=== PATIENT | female | born 1980 | race Caucasian/White ===

== ENCOUNTER 2020-03-13 15:39 | Inpatient (IN) | payer OTHER ==
[2020-03-13] VITALS (15 sets, daily range): BP systolic 109–134; BP diastolic 61–82
[~2020-03-13] VITALS: Ht 154.9 cm; Wt 76.4 kg
[2020-03-13] MEDS ORDERED: INDOCYANINE GREEN 25 MG/10 ML VIAL IV STA (15:55)
--- NOTE | 2020-03-13 16:00 | NUR ---
Received patient to room 344B. Patient is alert and oriented x4 with c/o 8/10 abdominal pain. Denies n/v at this time. Oriented patient to room and call light. Call light placed within reach. Bed is low and locked.
[2020-03-13] MEDS ORDERED: INDOCYANINE GREEN 25 MG/10 ML VIAL IV ONE (16:07)
[2020-03-13] MEDS ORDERED: ceFAZolin 2gm in dextrose, iso 50 ML IV ONE (16:07)
[2020-03-13] MEDS ORDERED: ringers solution, lacted 1,000 ML IV SCH (16:10)
[2020-03-13] MEDS ORDERED: labetalol 20mg/4ml (5mg/ml) syringe IV PRN (16:10)
[2020-03-13] MEDS ORDERED: hydrALAZINE 20mg/ml inj. IV PRN (16:10)
[2020-03-13] MEDS ORDERED: morphine 2 MG/ML inj. syringe IV PRN (16:10)
[2020-03-13] MEDS ORDERED: morphine 4 MG/ML inj SYRINge IV PRN (16:10)
[2020-03-13] MEDS ORDERED: ondansetron/PF 4mg/2ml inj IV PRN ×2 (16:10→19:20)
[2020-03-13] MEDS ORDERED: fentaNYL/PF 50MCG/1 ML 2ML syringe IV PRN ×2 (16:10)
[2020-03-13] MEDS ORDERED: HYDROmorphone 1 mg/ml syringe IV ONE (16:35)
[2020-03-13 16:57] LABS: BASOPHILS # (AUTO) 0.1 X10'3 (0-0.2); BASOPHILS % (AUTO) 0.9 % (0-1); EOSINOPHILS # (AUTO) 0.2 X10'3 (0-0.9); EOSINOPHILS % (AUTO) 3.1 % (0-6); HEMATOCRIT 36.3 % (35.0-45.0); HEMOGLOBIN 11.8 g/dl (12.0-16.0); LYMPHOCYTES # (AUTO) 1.9 X10'3 (1.1-4.8); LYMPHOCYTES % (AUTO) 24.7 % (21-51); MEAN CORPUSCULAR HEMOGLOBIN 29.6 PG (27.0-31.0); MEAN CORPUSCULAR HGB CONC 32.6 g/dL (33.0-36.5); MEAN CORPUSCULAR VOLUME 90.7 FL (78-98); MEAN PLATELET VOLUME 9.8 FL (7.4-10.4); MONOCYTES # (AUTO) 0.5 X10'3 (0-0.9); MONOCYTES % (AUTO) 7.3 % (2-12); NEUTROPHILS # (AUTO) 4.8 X10'3 (1.8-7.7); PLATELET COUNT 289 X10'3 (140-440); RED CELL DISTRIBUTION WIDTH 16.5 % (11.5-14.5); WHITE BLOOD COUNT 7.5 X10'3 (4.5-11.0)
[2020-03-13] MEDS ORDERED: LIDOcaine 1% 30ml preserv. free vial ONE (17:09)
[2020-03-13] MEDS ORDERED: BUPIVAcaine/PF 2.5 mg/ml (0.25%) 30ml vial ONE (17:09)
--- NOTE | 2020-03-13 17:10 | NUR ---
Report called down to DOROTEO Shah in recovery.
[2020-03-13 17:15] LABS: ALANINE AMINOTRANSFERASE 398 U/L (12-78); ALBUMIN 3.4 G/DL (3.4-5.0); ALBUMIN/GLOBULIN RATIO 0.9 (1.1-1.5); ALKALINE PHOSPHATASE 304 IU/L (46-116); ANION GAP 5 (8-16); ASPARTATE AMINO TRANSFERASE 286 U/L (10-37); BILIRUBIN,TOTAL 3.3 MG/DL (0.1-1.0); BLOOD UREA NITROGEN 4 MG/DL (7-18); BUN/CREATININE RATIO 5.9 (6.6-38.0); CALCIUM 8.7 MG/DL (8.5-10.1); CHLORIDE 104 MMOL/L (99-107); CREATININE 0.68 MG/DL (0.40-0.90); GLUCOSE 78 MG/DL (70-104); POTASSIUM 3.4 MMOL/L (3.5-5.1); SODIUM 137 MMOL/L (135-145); TOTAL CARBON DIOXIDE 27.6 MMOL/L (24-32); TOTAL PROTEIN 7.1 G/DL (6.4-8.2); eGFR > 90 ML/MIN
--- NOTE | 2020-03-13 17:32 | NUR ---
Patient down to OR via bed accompanied by x2 OR patient transporter.
[2020-03-13] MEDS ORDERED: rocuronium 10mg/ml inj IV ONE (17:41)
[2020-03-13] MEDS ORDERED: propofol inj 20 ML IV ONE (17:41)
[2020-03-13] MEDS ORDERED: ondansetron/PF 4mg/2ml inj ONE (17:41)
[2020-03-13] MEDS ORDERED: fentaNYL/PF 50MCG/1 ML 2ML syringe ONE (17:41)
[2020-03-13] MEDS ORDERED: midazolam 2 mg/2 ml injection ONE (17:41)
[2020-03-13] MEDS ORDERED: glycopyrrolate 0.2mg/ml inj ONE (17:42)
--- NOTE | 2020-03-13 18:39 | NUR ---
Patient in room [facility]. I have received report from Gogo SADLER and had the opportunity to ask questions and assume patient care.
--- NOTE | 2020-03-13 18:43 | NUR ---
Problems reprioritized. Patient report given, questions answered & plan of care reviewed with DOROTEO BAIN.
[2020-03-13] MEDS ORDERED: neostigmine methylsulfate 1 MG/ML 10ml vial ONE (19:00)
--- NOTE | 2020-03-13 19:11 | NUR ---
Received from OR via , accompanied by Anesthesiologist DR BRYSON and report given by Anesthesiolgist. AWAKENS TO VOICE. VITALS STABLE. VAUGHN PAIN. DRESSINGS DI. ABD SOFT.
[2020-03-13] MEDS ORDERED: CADD PCA waste documentation MC PRN (19:20)
[2020-03-13] MEDS ORDERED: naloxone 0.4 mg/ml inj IV PRN (19:20)
--- NOTE | 2020-03-13 19:45 | NUR ---
Received report from Pablo SADLER in recovery. Pt arrived on the unit via her own bed. Her glasses were with her in a ziploc bag with label. She was on 2L O2 via N/C, LR running @ 100 mls/hr and all VSS. Pt has no signs of distress, will continue to monitor.
--- NOTE | 2020-03-13 19:51 | NUR ---
Report called to receiving nurse. Transferred via BED Belongings . Special Issues communicated to receiving nurse. AWAKE AND ORIENTED. VITALS STABLE. DRESSINGS DI. STATES PAIN IMPROVING. TO SURGICAL RM 344B AT THIS TIME.
[2020-03-13] MEDS: ringers solution, lacted 1,000 ML IV SCH ×2 (20:01→22:35)
[2020-03-13] MEDS: HYDROmorphone/NS 1 mg/ml CADD 50 ML IV SCH ×3 (20:09→23:00)
[2020-03-13] MEDS ORDERED: LEVO75TA7 PO (21:39)
[2020-03-13] MEDS ORDERED: SERT50TA10 PO (21:39)
[2020-03-13] MEDS ORDERED: METO25TA6 PO (21:39)
[2020-03-13] MEDS ORDERED: LOSA25TA41 PO (21:39)
[2020-03-14] VITALS (14 sets, daily range): BP systolic 98–139; BP diastolic 56–93
[2020-03-14] MEDS: HYDROmorphone/NS 1 mg/ml CADD 50 ML IV SCH ×12 (01:00→23:00)
[2020-03-14] MEDS: ringers solution, lacted 1,000 ML IV SCH ×3 (02:38→20:26)
[2020-03-14 05:28] LABS: ALANINE AMINOTRANSFERASE 418 U/L (12-78); ALBUMIN 3.1 G/DL (3.4-5.0); ALBUMIN/GLOBULIN RATIO 0.9 (1.1-1.5); ALKALINE PHOSPHATASE 329 IU/L (46-116); ANION GAP 6 (8-16); ASPARTATE AMINO TRANSFERASE 326 U/L (10-37); BILIRUBIN,TOTAL 3.2 MG/DL (0.1-1.0); BLOOD UREA NITROGEN 4 MG/DL (7-18); BUN/CREATININE RATIO 5.5 (6.6-38.0); CALCIUM 8.7 MG/DL (8.5-10.1); CHLORIDE 103 MMOL/L (99-107); CREATININE 0.73 MG/DL (0.40-0.90); GLUCOSE 129 MG/DL (70-104); POTASSIUM 4.1 MMOL/L (3.5-5.1); SODIUM 136 MMOL/L (135-145); TOTAL CARBON DIOXIDE 27.1 MMOL/L (24-32); TOTAL PROTEIN 6.6 G/DL (6.4-8.2); eGFR 87 ML/MIN
[2020-03-14 05:45] LABS: BASOPHILS % (AUTO) 0.4 % (0-1); EOSINOPHILS % (AUTO) 0 % (0-6); HEMATOCRIT 34.6 % (35.0-45.0); HEMOGLOBIN 11.4 g/dl (12.0-16.0); LYMPHOCYTES # (AUTO) 0.7 X10'3 (1.1-4.8); LYMPHOCYTES % (AUTO) 7.8 % (21-51); MEAN CORPUSCULAR HEMOGLOBIN 30.3 PG (27.0-31.0); MEAN CORPUSCULAR VOLUME 91.8 FL (78-98); MEAN PLATELET VOLUME 10.3 FL (7.4-10.4); MONOCYTES # (AUTO) 0.2 X10'3 (0-0.9); MONOCYTES % (AUTO) 2.3 % (2-12); NEUTROPHILS # (AUTO) 7.8 X10'3 (1.8-7.7); NEUTROPHILS % (AUTO) 89.5 % (42-75); PLATELET COUNT 286 X10'3 (140-440); RED BLOOD COUNT 3.77 X10'6 (4.20-5.60); RED CELL DISTRIBUTION WIDTH 16.6 % (11.5-14.5); WHITE BLOOD COUNT 8.7 X10'3 (4.5-11.0)
--- NOTE | 2020-03-14 06:38 | NUR ---
Problems reprioritized. Patient report given, questions answered & plan of care reviewed with Gogo SADLER. Pt sitting up in bed. No signs of distress.
--- NOTE | 2020-03-14 06:40 | NUR ---
Patient in room [facility]. I have received report from DOROTEO Brooks and had the opportunity to ask questions and assume patient care.
--- NOTE | 2020-03-14 06:44 | NUR ---
Patient in room [facility]. I have received report from DOROTEO Brooks and had the opportunity to ask questions and assume patient care.
[2020-03-14] MEDS: albuterol 2.5 MG/3 ML nebule NEB SCH ×4 (07:00→19:00)
[2020-03-14] MEDS: metoprolol tartrate 25mg tablet PO SCH ×2 (08:00→20:31)
[2020-03-14] MEDS: losartan 25mg tablet PO SCH (08:00)
[2020-03-14] MEDS ORDERED: acetaminophen 325mg tablet PO PRN (11:20)
--- NOTE | 2020-03-14 11:54 | NUR ---
0700 and 1100 pt refuses svn treatments. no distress observed
--- NOTE | 2020-03-14 13:42 | NUR ---
Patient upset and crying in room. She stated "they told me it would be the first thing in the morning. I haven't eaten. I'm in pain." Let patient know that GI lab has been called and paged several times throughout the day and no answer. Let patient know will attempt to get a hold of GI lab. Paged and called GI again with no answer.
--- NOTE | 2020-03-14 14:08 | NUR ---
Received call from [facility] GI RN that plan is for 1630 for patient to have ErCP. Let patient know.
[2020-03-14] MEDS ORDERED: glucagon, human recombinant 1mg kit ONE (16:00)
[2020-03-14] MEDS ORDERED: LIDOcaine Viscous 15ml cup ONE ×2 (16:00→17:58)
[2020-03-14] MEDS ORDERED: iohexol 300 MG/1 ML 50ml polymer ONE (16:00)
[2020-03-14] MEDS ORDERED: diphenhydrAMINE 50 mg/ml inj ONE (16:00)
[2020-03-14] MEDS ORDERED: fentaNYL/PF 50MCG/1 ML 2ML syringe ONE (16:00)
[2020-03-14] MEDS ORDERED: MIDAZolam 5mg/5ml vial ONE (16:00)
[2020-03-14] MEDS ORDERED: levoFLOXACIN-Levaquin 500mg/D5 100 ML IV ONE (16:00)
--- NOTE | 2020-03-14 16:40 | NUR ---
Patient down to GI lab for ERCP.
--- NOTE | 2020-03-14 16:40 | NUR ---
Patient went down to GI lab for procedure.
--- NOTE | 2020-03-14 17:10 | NUR ---
Student documentation: I have reviewed and agree with all interventions, assessments performed and documented by DOROTEO Box. Student Medication Administration: For this medication-pass time frame, all medication were reviewed, dispensed, administered and documented per hospital policy by DOROTEO Box.
--- NOTE | 2020-03-14 18:16 | NUR ---
Problems reprioritized. Patient report given, questions answered & plan of care reviewed with DOROTEO Brooks.
--- NOTE | 2020-03-14 18:17 | NUR ---
Problems reprioritized. Patient report given, questions answered & plan of care reviewed with DORTOEO Brooks.
--- NOTE | 2020-03-14 18:49 | NUR ---
Patient in room [facility]. I have received report from Gogo SADLER and had the opportunity to ask questions and assume patient care. Pt currently in GI lab.
[2020-03-15] MEDS: HYDROmorphone/NS 1 mg/ml CADD 50 ML IV SCH ×6 (01:00→11:00)
[2020-03-15] MEDS: ringers solution, lacted 1,000 ML IV SCH ×3 (01:15→10:57)
[2020-03-15 05:21] LABS: ALANINE AMINOTRANSFERASE 318 U/L (12-78); ALBUMIN 2.5 G/DL (3.4-5.0); ALBUMIN/GLOBULIN RATIO 0.8 (1.1-1.5); ALKALINE PHOSPHATASE 284 IU/L (46-116); ANION GAP 5 (8-16); ASPARTATE AMINO TRANSFERASE 169 U/L (10-37); BILIRUBIN,TOTAL 1.1 MG/DL (0.1-1.0); BLOOD UREA NITROGEN 5 MG/DL (7-18); BUN/CREATININE RATIO 7.7 (6.6-38.0); CHLORIDE 106 MMOL/L (99-107); CREATININE 0.65 MG/DL (0.40-0.90); GLUCOSE 78 MG/DL (70-104); POTASSIUM 3.5 MMOL/L (3.5-5.1); SODIUM 139 MMOL/L (135-145); TOTAL CARBON DIOXIDE 27.8 MMOL/L (24-32); TOTAL PROTEIN 5.5 G/DL (6.4-8.2); eGFR > 90 ML/MIN
--- NOTE | 2020-03-15 06:34 | NUR ---
Problems reprioritized. Patient report given, questions answered & plan of care reviewed with Gogo SADLER.
--- NOTE | 2020-03-15 06:40 | NUR ---
Patient in room [facility]. I have received report from DOROTEO Brooks and had the opportunity to ask questions and assume patient care.
--- NOTE | 2020-03-15 07:04 | NUR ---
Patient in room [facility]. I have received report from DOROTEO Brooks and had the opportunity to ask questions and assume patient care.
[2020-03-15 08:00] VITALS: BP 170/71
[2020-03-15] MEDS: metoprolol tartrate 25mg tablet PO SCH (08:19)
[2020-03-15] MEDS: losartan 25mg tablet PO SCH (08:20)
[2020-03-15] MEDS: albuterol 2.5 MG/3 ML nebule NEB SCH ×2 (08:39→12:32)
--- NOTE | 2020-03-15 11:30 | NUR ---
Student documentation: I have reviewed and agree with all interventions, assessments performed and documented by SN Charu. Student Medication Administration: For this medication-pass time frame, all medication were reviewed, dispensed, administered and documented per hospital policy by SN Charu.
[2020-03-15 12:24] VITALS: BP 100/55
--- NOTE | 2020-03-15 12:53 | NUR ---
Patient wanting to go home. Frustrated she is still here "I'm eating, I'm walking. The bed doesn't feel good, I'm uncomfortable. I want to go home. Can you call Dr. Burgos?" Dr Burgos called and notified. Dr Burgos stated, "she will go home once I round." Patient aware.
[2020-03-15] MEDS ORDERED: HYDROcodone/acetaminophen 5mg/325mg tablet PO PRN ×2 (13:15)
[2020-03-15] MEDS ORDERED: HYDR-4383 PO (13:18)
--- NOTE | 2020-03-15 13:56 | NUR ---
Pt's Cadd's was DC'ed 02/13/20 at 1335. Pt's last assessments were [place] 33.1ml, Attempts/given 41/50, given 8.20mls, continuous 0, demand dose 0.20ml, lock out 10min. When the waste was documented there were 40ml in the reservoir which were witness being wasted by Sandrine Hernández. Primary nurse Gogo HERNÁNDEZ was notified of the discrepancy as well as pharmacy.
--- NOTE | 2020-03-15 14:30 | NUR ---
Patient alert and oriented with no complaints at this time. [place] administered to patient for pain and for transport home. Discussed discharge teaching with patient and she verbalizes understanding of teaching. Patient dc'd with all personal belongings, accompanied by Vladimir in wheelchair. Patient's spouse transporting patient home in personal car.
== END 2020-03-15 14:30 | disposition home or self-care (01) | DRG 418 ==
LOC: SUR 3N 15:39
PROVIDERS: ADMIT Surgery; ATTEND Surgery
PROC: 0WQF4ZZ Repair Abdominal Wall, Percutaneous Endoscopic Approach (ICD-10-PCS; 2020-03-13)
PROC: BF121ZZ Fluoroscopy of Gallbladder using Low Osmolar Contrast (ICD-10-PCS; 2020-03-13)
PROC: 8E0W4CZ Robotic Assisted Procedure of Trunk Region, Percutaneous Endoscopic Approach (ICD-10-PCS; 2020-03-13)
PROC: 0FT44ZZ Resection of Gallbladder, Percutaneous Endoscopic Approach (ICD-10-PCS; principal; 2020-03-13 17:40)
PROC: 0F798ZZ Dilation of Common Bile Duct, Via Natural or Artificial Opening Endoscopic (ICD-10-PCS; 2020-03-14)
PROC: BF101ZZ Fluoroscopy of Bile Ducts using Low Osmolar Contrast (ICD-10-PCS; 2020-03-14)
DX: K80.63 Calculus of gallbladder and bile duct with acute cholecystitis with obstruction (principal); K43.6 Other and unspecified ventral hernia with obstruction, without gangrene; K83.8 Other specified diseases of biliary tract; F17.200 Nicotine dependence, unspecified, uncomplicated; I10 Essential (primary) hypertension; Z88.2 Allergy status to sulfonamides
CPT/HCPCS: 43262; 43264; Z7506; Z7508; 36415; 71045; 80053; 82948; 85025; 85610; 87081; 93005; 94760; 99152; 99153; A4215; A4618; A4620; C1769; G0378; J1170; J1200; J1610; J1956; J2001; J2250; J2405; J2704; J2710; J3010; J3490; J7040; J7120; Q9967